=== PATIENT | female | born 1995 | race African-American/Black ===

== ENCOUNTER 2016-11-13 16:35 | Inpatient (IN) | payer OTHER ==
[~2016-11-13] VITALS: Ht 160 cm; Wt 71.3 kg
[~2016-11-13 16:35] MED LIST: ALBUAER19 INH; EPP3/2 INJ; ETON1IMP2 INTRAD; FLUV100T12 PO; HYDR-389 PO; HYDR-5688 PO; LMC/150 PO
[2016-11-13] MEDS ORDERED: AZITTAB PO (17:04)
[2016-11-13] MEDS ORDERED: PRED10TA PO (17:04)
[2016-11-13] MEDS ORDERED: GUAISYP4 PO (17:05)
[2016-11-13 17:21] LABS: HEMATOCRIT 35.8 % (37-47); MEAN CORPUSCULAR HEMOGLOBIN 26.5 pg (25-34); MEAN CORPUSCULAR HGB CONC 34.4 g/dl (32-36); MEAN PLATELET VOLUME 10.3 fL (7.4-10.4); PLATELET COUNT 246 K/uL (130-400); RED BLOOD COUNT 4.65 M/uL (4.2-5.4); WHITE BLOOD COUNT 6.71 K/uL (4.8-10.8)
[2016-11-13 17:34] LABS: BENZODIAZEPINE, URINE NEG (NEG); COCAINE,URINE NEG (NEG); PHENCYCLIDINE, URINE NEG (NEG)
[2016-11-13 17:46] LABS: BUN/CREATININE RATIO 13.4 (10-20); CALCIUM 9.1 mg/dl (8.5-10.1); CREATININE 0.89 mg/dl (0.60-1.20); POTASSIUM 3.6 mmol/L (3.5-5.1)
[2016-11-13 17:48] LABS: ACETAMINOPHEN < 2 ug/ml (10-30)
[2016-11-13 17:56] LABS: THYROID STIMULATING HORMONE 0.813 uIu/ml (0.300-4.500)
[2016-11-13 18:59] VITALS: O2SAT 96
[2016-11-13 19:25] VITALS: BP 120/75; PULSE 80; TEMP 37.1; Ht 160 cm; Wt 71.3 kg
[2016-11-13] MEDS ORDERED: ALBUTEROL HFA 8 GM INHALER INH PRN (19:30)
[2016-11-13] MEDS ORDERED: SODIUM CHLORIDE 0.65% NA SOLN 45 ML (OCEAN) PRN (19:30)
[2016-11-13] MEDS ORDERED: ACETAMINOPHEN 325 MG TAB PO PRN (19:30)
[2016-11-13] MEDS ORDERED: BISMUTH SUBSALICYLATE PER ML OMNICELL CHARGE PO PRN (19:30)
[2016-11-13] MEDS ORDERED: EPINEPHRINE ADULT AUTO-INJECT 0.3 MG SYR IM SCH (19:30)
[2016-11-13] MEDS ORDERED: MAGNESIUM HYDROXIDE SUSP 30 ML UDC PO PRN (19:30)
[2016-11-13] MEDS ORDERED: ALUMINUM/MAGNESIUM SUSP 30 ML UDC PO PRN (19:30)
[2016-11-13] MEDS ORDERED: hydrOXYzine HCL 25 MG TAB PO PRN ×2 (19:30)
[2016-11-13] MEDS ORDERED: NURSING VERBAL MED ORDER ONE ×3 (19:45→21:30)
--- NOTE | 2016-11-13 21:17 | EMERGENCY ROOM VISIT NOTE ---
History Report prepared by Ezra: Elli Alvarez Under the Supervision of: Dr. Ramon Gutierrez M.D. First contact with patient: 16:44 Chief Complaint: MENTAL HEALTH EVALUATION History of Present Illness The patient is a 20 year old female who presents to the Emergency Room with complaints of worsening depression and suicidality. She admits to having a plan of driving in front of traffic in order to hurt herself. She admits she has been experiencing depression for the past 6 months. She states she experienced a concussion several months ago which led to problems at school, and with work. She is currently on antidepressants. She has never been hospitalized for psychiatric reasons. She notes she spoke to a [employer] insurance representative earlier today who recommended inpatient treatment, and she is agreeable to this. The patient is currently being treated for bronchitis and still suffering with a cough and congestion. She has been taking antibiotics, a steroid and cough syrup. She notes otherwise she feels well, but has not had much of an appetite recently. She admits to regular Marijuana use and states the last time she smoke was yesterday. She denies any chance of being . 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 A total of 10 systems reviewed and were otherwise negative. Past Medical & Surgical Medical Problems: (1) Asthma Surgical Problems: (1) History of appendectomy Social History Smoking Status: Never Smoker Alcohol Use: none Drug Use: none Marital Status: single Housing Status: lives with roommate Occupation Status: [employer] student Current/Historical Medications Scheduled Epinephrine (Epipen 2-Edwin), 0.3 MG INJ UD Etonogestrel (Nexplanon), INTRAD [id number] Fluvoxamine Maleate (Luvox), 150 MG PO HS Lamotrigine (Lamictal), 150 MG PO HS Prednisone (Prednisone), 1 TAB PO UD Scheduled PRN Albuterol Inhaler (Ventolin Inhaler), 2 PUFFS INH QID PRN for SOB/Wheezing Guaifenesin/Codeine (Robitussin-Ac Syrup), 5 ML PO Q6H PRN for Cough Miscellaneous Medications Azithromycin (Zithromax Z-Edwin), 1 TAB PO Allergies Coded Allergies: No Known Allergies (Unverified , 11/13/16) Physical Exam Vital Signs Date Time Temp Pulse Resp B/P Pulse Ox O2 Delivery O2 Flow Rate FiO2 11/13/16 16:42 37.0 72 18 133/78 96 Room Air Physical Exam Constitutional: Vital signs reviewed. Eyes: Pupils are equal round reactive to light. Conjunctiva are noninjected. ENT: Pharynx is clear without erythema or exudate. Mucous membranes are moist. Neck supple without meningeal signs. Respiratory: Clear to auscultation bilaterally. Breath sounds are equal bilaterally. Cardiovascular: Regular rate and rhythm. No rubs or gallops. GI: Soft, nondistended and nontender. Bowel sounds are present. Musculoskeletal: No peripheral edema. No lacerations. Integumentary: No cyanosis. Neurological: The patient is awake and alert. No focal deficits. Psychiatric: Depressed affect. Medical Decision & Procedures Laboratory Results 11/13/16 17:09 11/13/16 17:09 Test 11/13/16 16:58 11/13/16 17:09 Urine Test NEG (NEG) Urine Opiates Screen POS (NEG) Urine Methadone, Qualitative NEG (NEG) Urine Barbiturates NEG (NEG) Urine Phencyclidine (PCP) Level NEG (NEG) Ur Amphetamine/Methamphetamine NEG (NEG) MDMA (Ecstasy) Screen NEG (NEG) Urine Benzodiazepines Screen NEG (NEG) Urine Cocaine Metabolite NEG (NEG) Urine Marijuana (THC) POS (NEG) Red Blood Count 4.65 M/uL (4.2-5.4) Mean Corpuscular Volume 77.0 fL (80-100) Mean Corpuscular Hemoglobin 26.5 pg (25-34) Mean Corpuscular Hemoglobin Concent 34.4 g/dl (32-36) RDW Standard Deviation 36.7 fL (36.4-46.3) RDW Coefficient of Variation 13.1 % (11.5-14.5) Mean Platelet Volume 10.3 fL (7.4-10.4) Anion Gap 8.0 mmol/L (3-11) Est Creatinine Clear Calc Drug Dose 95.4 ml/min Estimated GFR () 108.1 Estimated GFR (Non- 93.3 BUN/Creatinine Ratio 13.4 (10-20) Calcium Level 9.1 mg/dl (8.5-10.1) Total Bilirubin 0.5 mg/dl (0.2-1) Direct Bilirubin 0.1 mg/dl (0-0.2) Aspartate Amino Transf (AST/SGOT) 8 U/L (15-37) Alanine Aminotransferase (ALT/SGPT) 17 U/L (12-78) Alkaline Phosphatase 61 U/L (45-117) Total Protein 8.1 gm/dl (6.4-8.2) Albumin 4.2 gm/dl (3.4-5.0) Thyroid Stimulating Hormone (TSH) 0.813 uIu/ml (0.300-4.500) Salicylates Level 3.8 mg/dl (2.8-20) Acetaminophen Level < 2 ug/ml (10-30) Ethyl Alcohol mg/dL < 3.0 mg/dl (0-3) Laboratory results as reviewed by me. ED Course 164: The patient was evaluated in room A6. A complete history and physical exam was performed. 1899: I discussed the patient's case with Leesa from [address] [place] [address]'s Psychiatric Care Floor. The patient will be further evaluated. Medical Decision This is a 20-year-old female presents for mental health evaluation. I did perform a limited focused review of portions of the patient's old chart on the electronic medical record. The patient has had no recent pertinent visits to this hospital. I did evaluate the patient as noted above. The patient is presenting with depression and suicidal ideation. I did order and review the patient's blood work as noted in the electronic medical record. I did medically clear the patient. She was evaluated by mental health. She was accepted to 3 S. inpatient psychiatric unit. Consults Time Called: 1854 Consulting Physician: Leesa [address] [place] [address]'s Psychiatric Care Floor Returned Call: 1899 I discussed the patient's case with Leesa from [address] [place] [address]'s Psychiatric Care Floor. The patient will be further evaluated. Impression Primary Impression: Mood disorder Additional Impression: Suicidal ideation Scribe Attestation The scribe's documentation has been prepared under my direct and personally reviewed by me in its entirety. I confirm that the note above accurately reflects all work, treatment, procedures, and medical decision making performed by me. Departure Information Dispostion Mental Health Acute Care (The patient will be further evaluated by [address] [place] [address] 's Psychiatric Care Floor) Referrals No Doctor, Assigned (PCP) Patient Instructions My [facility] Problem Qualifiers
[2016-11-13] MEDS ORDERED: FLUVOXAMINE MALEATE 50 MG TAB PO SCH (22:00)
[2016-11-13] MEDS ORDERED: PREDNISONE 5 MG PO SCH (23:00)
[2016-11-14] MEDS: GUAIFENESIN/CODEINE 100MG/10MG 5ML UDC PO PRN ×2 (05:12→19:10)
[2016-11-14 07:07] VITALS: BP_SYST 116; BP_SYST 127; BP_DIAS 75; BP_DIAS 81; PULSE 102; PULSE 80; TEMP 36.8
[2016-11-14] MEDS: PREDNISONE 5 MG PO SCH ×2 (08:50→08:51)
[2016-11-14] MEDS ORDERED: PREDNISONE 5 MG PO SCH (09:00)
[2016-11-14] MEDS ORDERED: AZITHROMYCIN 250 MG PO SCH (09:00)
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
[2016-11-14] MEDS: QUETIAPINE FUMARATE 25 MG TAB PO PRN (18:11)
[2016-11-14] MEDS: QUETIAPINE FUMARATE 25 MG TAB PO SCH (21:01)
[2016-11-14] MEDS ORDERED: FLUVOXAMINE MALEATE 50 MG TAB PO SCH (22:00)
[2016-11-15 06:56] VITALS: BP_SYST 119; BP_DIAS 75; BP_DIAS 78; PULSE 62; PULSE 66; TEMP 37
[2016-11-15 07:50] LABS: CHOLESTEROL/HDL RATIO 2.9
[2016-11-15] MEDS ORDERED: PREDNISONE 5 MG PO SCH (09:00)
--- NOTE | 2016-11-15 09:38 | Psychiatric Progress Notes ---
Progress Note Date of Service Nov 15, 2016. Interval History 20 yo female with a history of bipolar depression, admit on 11/13/16 on a 201 commitment. Chief Complaint "I'm feeling calmer but also a bit overmedicated". Subjective Patient was seen & assessed interval progress reviewed with nursing. Family meeting with mother yesterday, related she felt judged. Requesting 1-on-1 today with staff but doesn't specifically note an issue she would like addressed when given opportunity in MD meeting. A bit tired this am. Stated she is undecided about medical withdrawal for the semester and that makes her feel stressed. She's been tearful in pm and poor appetite. Review of Systems Psych: denies symptoms other than stated above Constitutional: denied other than stated above. Cardiovascular: denied GI: denied Neurologic: denied Remainder of 10 body systems also reviewed and denied other than noted above, glad steroid taper is completing also feels made more emotional. Sleep Information Total Hours of Sleep: 7.25 Meal Information Percent of Breakfast Consumed: 50 Percent of Lunch Consumed: 100 Percent of Dinner Consumed: 0 Mental Status Exam During interview pt is: alert and oriented Appearance: appropriately dressed, appropriately groomed Eye contact is: good Motor behavior is: no abnormal motor movements Speech: normal in rate, rhythm & volume Affect: depressed Mood is: depressed Thought process: clear, coherent Thought content: reality based without delusions Suicidal thought are: denied, Plan: denied, Intent: denied Homicidal thoughts are: denied Hallucinations: denies auditory, denies visual Cognition: memory grossly intact, attention grossly intact Intelligence estimated to be: consistent with level of education Insight: limited Judgement: limited Impression Carlos is a 20 yo female with a family history of bipolar disorder who presents with recurrent depression alternating with periods of overcommitment when hypomanic that lead to ongoing anxiety. She has not responded much to 2 SSRI and SNRI and developed SI despite trial of lamictal. Plan (1) Bipolar II disorder with seasonal pattern 11/14/16-- Risks/benefits/alternative treatments were reviewed re: antipsychotics for mood and/or psychosis. Discussion included but was not limited to metabolic side effects, risks of TD and suicidal thoughts. Baseline AIMS=0. Fasting glucose and lipid panel ordered for baseline monitoring. She agreed to a trial of Seroquel which will start 50 mg tonight with additional 12.5 mg daily prn. Case reviewed with Nadine Chan who is supportive of plan as well as Luvox taper. 11/15/16--continue Luvox taper. Tolerating Seroquel so far, consider additional titration. (2) Cannabis use disorder, mild, abuse reviewed impact on treatment of mood disorder in context of self medication and advise abstain, particularly given family history of substance dependence Discharge / Aftercare Planning Psychiatrist: Name: Judit Chan Therapist: Name: Violet Vences Visit Code E&M Code: 33910 Inventory Assets Strengths: resilient, commitment to finishing her degree Needs: balance between work/school/other commitments, improve coping with family and relationship stressors Risk Factors Assessment Mental Health Diagnoses: Yes Substance use disorders: Yes Smoker: No Protective Factors Assessment Employed: Yes Good rapport with provider: Yes Data Vital Signs Last 24 Hrs: Date Time Temp Pulse Resp B/P Pulse Ox O2 Delivery O2 Flow Rate FiO2 11/15/16 06:56 37.0 62 16 119/75 66 119/78 Meds Administered Last 24 Hrs: Meds Administered (Past 24Hrs) Medications (Trade) Dose Ordered Sig/Fay Route Start Time Stop Time Status Last Admin Dose Admin Azithromycin (Zithromax Tab) 250 mg DAILY PO 11/14/16 09:00 11/15/16 08:59 DC 11/14/16 08:49 250 MG Fluvoxamine Maleate (Luvox Tab) 150 mg HS PO 11/13/16 22:00 11/14/16 11:15 DC 11/13/16 21:29 150 MG Codeine Phosphate/ Guaifenesin (Robitussin-AC Sugar Free Syrup) 5 ml Q6H PRN PO 11/13/16 19:30 12/13/16 19:29 11/14/16 19:10 5 ML Lamotrigine (Lamictal Tab) 150 mg HS PO 11/13/16 22:00 12/13/16 21:59 11/14/16 21:00 150 MG Prednisone (PredniSONE TAB) 5 mg TODAY@2300 PO 11/13/16 23:00 11/13/16 23:05 DC 11/13/16 23:11 5 MG Prednisone (PredniSONE TAB) 5 mg BID PO 11/14/16 09:00 11/14/16 22:01 DC 11/14/16 08:50 5 MG Prednisone (PredniSONE TAB) 5 mg TODAY@0900 PO 11/15/16 09:00 11/15/16 09:01 DC 11/15/16 08:48 5 MG Fluvoxamine Maleate (Luvox Tab) 100 mg HS PO 11/14/16 22:00 11/15/16 09:02 DC 11/14/16 21:01 100 MG Quetiapine Fumarate (seroQUEL TAB) 50 mg HS PO 11/14/16 22:00 12/14/16 21:59 11/14/16 21:01 50 MG Quetiapine Fumarate (seroQUEL TAB) 12.5 mg Q6 PRN PO 11/14/16 11:15 12/14/16 11:14 11/14/16 18:11 12.5 MG Lab Results Last 24 Hrs: Last 24 Hours Test 11/15/16 07:24 Random Glucose 94 mg/dl Triglycerides Level 63 mg/dl Cholesterol Level 139 mg/dl HDL Cholesterol 48 mg/dl LDL Cholesterol, Calculated 78 mg/dl VLDL Cholesterol, Calculated 13 mg/dl Cholesterol/HDL Ratio 2.9
[2016-11-15] MEDS: GUAIFENESIN/CODEINE 100MG/10MG 5ML UDC PO PRN (18:34)
[2016-11-15] MEDS: QUETIAPINE FUMARATE 25 MG TAB PO PRN (18:48)
[2016-11-15] MEDS ORDERED: FLUVOXAMINE MALEATE 50 MG TAB PO SCH (22:00)
[2016-11-15] MEDS: QUETIAPINE FUMARATE 25 MG TAB PO SCH (22:48)
[2016-11-16 06:57] VITALS: BP_SYST 112; BP_SYST 113; BP_DIAS 78; BP_DIAS 79; PULSE 67; PULSE 86; TEMP 36.9
[2016-11-16] MEDS: QUETIAPINE FUMARATE 25 MG TAB PO PRN ×2 (08:38→19:02)
--- NOTE | 2016-11-16 14:58 | Psychiatric Progress Notes ---
Progress Note Date of Service Nov 16, 2016. Interval History 20 yo female with a history of bipolar depression, admit on 11/13/16 on a 201 commitment. Chief Complaint concerns about weight gain Subjective Patient was seen & assessed interval progress reviewed with nursing. She apparently found out that her ex-boyfriend knows that she is here and worried that he may show up to visit. Staff reassured that locked unit/secure, visitors are at her discretion but resulted in restless sleep and nonspecific night neff. She remains flat this am and low motivation, doesn't care if lives or dies. Had some fleeting thoughts of thinking of ways to harm self here. Didn't have any plan or intent, continues to safety plan to go to staff. She asked questions about weight concerns longer term with Seroquel based on conversation with mother and is happy to continue it for now as hs dose and prn have been extremely helpful. Review of Systems Psych: denies symptoms other than stated above Constitutional: fatigue Cardiovascular: denied GI: denied Neurologic: denied Remainder of 10 body systems also reviewed and denied other than noted above. Sleep Information Total Hours of Sleep: 6.50 Meal Information Percent of Breakfast Consumed: 50 Percent of Lunch Consumed: 50 Percent of Dinner Consumed: 70 Mental Status Exam During interview pt is: alert and oriented Appearance: appropriately dressed, appropriately groomed Eye contact is: good Motor behavior is: no abnormal motor movements Speech: normal in rate, rhythm & volume Affect: depressed Mood is: depressed Thought process: clear, coherent Thought content: reality based without delusions Suicidal thought are: present, Plan: denied, Intent: denied Homicidal thoughts are: denied Hallucinations: denies auditory, denies visual Cognition: memory grossly intact, attention grossly intact Intelligence estimated to be: consistent with level of education Insight: limited Judgement: limited Impression Carlos is a 20 yo female with a family history of bipolar disorder who presents with recurrent depression alternating with periods of overcommitment when hypomanic that lead to ongoing anxiety. She has not responded much to 2 SSRI and SNRI and developed SI despite trial of lamictal. Continued Inpatient Care Continued inpatient hospitalization is medically necessary for ongoing monitoring and safety. Plan (1) Bipolar II disorder with seasonal pattern 11/14/16-- Risks/benefits/alternative treatments were reviewed re: antipsychotics for mood and/or psychosis. Discussion included but was not limited to metabolic side effects, risks of TD and suicidal thoughts. Baseline AIMS=0. Fasting glucose and lipid panel ordered for baseline monitoring. She agreed to a trial of Seroquel which will start 50 mg tonight with additional 12.5 mg daily prn. Case reviewed with Nadine Chan who is supportive of plan as well as Luvox taper. 11/15/16--continue Luvox taper. Tolerating Seroquel so far, consider additional titration. 11/16/16--d/c Luvox. Patient declines additional Seroquel titration at this time. Consider Wellbutrin trial if no improvement in symptoms tomorrow. (2) Cannabis use disorder, mild, abuse reviewed impact on treatment of mood disorder in context of self medication and advise abstain, particularly given family history of substance dependence Discharge / Aftercare Planning Psychiatrist: Name: Judit Chan Therapist: Name: Violet Vences Visit Code E&M Code: 32630 Inventory Assets Strengths: resilient, commitment to finishing her degree Needs: balance between work/school/other commitments, improve coping with family and relationship stressors Risk Factors Assessment Mental Health Diagnoses: Yes Substance use disorders: Yes Smoker: No Protective Factors Assessment Employed: Yes Good rapport with provider: Yes Data Vital Signs Last 24 Hrs: Date Time Temp Pulse Resp B/P Pulse Ox O2 Delivery O2 Flow Rate FiO2 11/16/16 06:57 36.9 67 16 113/78 86 112/79 Meds Administered Last 24 Hrs: Meds Administered (Past 24Hrs) Medications (Trade) Dose Ordered Sig/Fay Route Start Time Stop Time Status Last Admin Dose Admin Prednisone (PredniSONE TAB) 5 mg TODAY@0900 PO 11/15/16 09:00 11/15/16 09:01 DC 11/15/16 08:48 5 MG Fluvoxamine Maleate (Luvox Tab) 100 mg HS PO 11/14/16 22:00 11/15/16 09:02 DC 11/14/16 21:01 100 MG Quetiapine Fumarate (seroQUEL TAB) 50 mg HS PO 11/14/16 22:00 12/14/16 21:59 11/15/16 22:48 50 MG Fluvoxamine Maleate (Luvox Tab) 50 mg HS PO 11/15/16 22:00 11/16/16 13:09 DC 11/15/16 22:47 50 MG
[2016-11-16] MEDS: QUETIAPINE FUMARATE 25 MG TAB PO SCH (21:58)
[2016-11-17 07:06] VITALS: BP_SYST 107; BP_DIAS 65; BP_DIAS 72; PULSE 71; PULSE 93; TEMP 36.9
[2016-11-17] MEDS ORDERED: BuPROPion SR 100 MG TABCR PO ONE (11:21)
--- NOTE | 2016-11-17 11:21 | Psychiatric Progress Notes ---
Progress Note Date of Service Nov 17, 2016. Interval History 20 yo female with a history of bipolar depression, admit on 11/13/16 on a 201 commitment. Chief Complaint "My mood's still not stable at all". Subjective Patient was seen & assessed interval progress reviewed with Treatment Team. Staff report she has been tearful and upset, is going to groups, and has had med changes. She has been tapered off Luvox and started quetiapine, while continuing home dose Lamictal. She states her mood is slightly improved from admission, but still feels depressed, with frequent mood swings throughout the day. She denies triggers, and states the mood swings are unpredictable. She endorses ongoing suicidal thoughts, stating "I'd rather not be here with the way I feel." She has thoughts of driving her car into something. She is unable to contract for safety outside the hospital, but feels safe here. She states that her sleep is "awful, tossing and turning, sweating, had a nightmare. " She is trying to force herself to participate in treatment but says she "hates group, doesn't help, just annoys me, a lot of patients here who don't take their mental illness seriously." She does feel one-on-one sessions with staff has been helpful. She would like to start Wellbutrin as previously discussed with Dr. Horan over the weekend. Sleep Information Total Hours of Sleep: 6.50 Meal Information Percent of Breakfast Consumed: 90 Percent of Lunch Consumed: 50 Percent of Dinner Consumed: 50 Mental Status Exam During interview pt is: alert and oriented Appearance: appropriately dressed (wearing orange sweat pants and an orange sweatshirt that says "loza"), appropriately groomed (wearing makeup) Eye contact is: good Motor behavior is: steady gait & station, no abnormal motor movements Speech: normal in rate, rhythm & volume Affect: depressed, tearful, constricted Mood is: depressed Thought process: goal directed, clear, coherent Thought content: reality based without delusions Suicidal thought are: present, Plan: present (crashing her car into something) , Intent: denied Homicidal thoughts are: denied Hallucinations: denies auditory, denies visual Cognition: memory grossly intact, attention grossly intact Intelligence estimated to be: consistent with level of education Insight: limited Judgement: limited Impression Carlos is a 20 yo female with a family history of bipolar disorder who presents with recurrent depression alternating with periods of overcommitment when hypomanic that lead to ongoing anxiety. She has not responded much to 2 SSRI and SNRI and developed SI despite trial of Lamictal. On admission, she was placed on a Luvox taper, and was started on quetiapine. 11/17/2016 she is being started on Wellbutrin. Continued Inpatient Care Continued inpatient hospitalization is medically necessary for ongoing monitoring and safety due to severe depression and ongoing suicidality. Plan (1) Bipolar II disorder with seasonal pattern 11/14/16-- Risks/benefits/alternative treatments were reviewed re: antipsychotics for mood and/or psychosis. Discussion included but was not limited to metabolic side effects, risks of TD and suicidal thoughts. Baseline AIMS=0. Fasting glucose and lipid panel ordered for baseline monitoring. She agreed to a trial of Seroquel which will start 50 mg tonight with additional 12.5 mg daily prn. Case reviewed with Nadine Chan who is supportive of plan as well as Luvox taper. Continue home dose of lamotrigine 150 mg daily. Family meeting held with parents. 11/15/16--continue Luvox taper. Tolerating Seroquel so far, consider additional titration. Fasting labs were within normal limits. 11/16/16--d/c Luvox. Patient declines additional Seroquel titration at this time. Consider Wellbutrin trial if no improvement in symptoms tomorrow. 11/17/16 --Increase quetiapine to 100mg qhs to target depression, mood lability, and sleep. Start bupropion SR 100mg bid. Monitor for mood instability. --Encouraged to attend groups, work on healthy coping skills, and discharge safety plan. (2) Cannabis use disorder, mild, abuse reviewed impact on treatment of mood disorder in context of self medication and advise abstain, particularly given family history of substance dependence Discharge / Aftercare Planning Psychiatrist: Name: Judit Cahn Therapist: Name: Violet Vences Visit Code E&M Code: 05402 Inventory Assets Strengths: resilient, commitment to finishing her degree Needs: balance between work/school/other commitments, improve coping with family and relationship stressors Risk Factors Assessment Mental Health Diagnoses: Yes Substance use disorders: Yes Smoker: No Protective Factors Assessment Employed: Yes Good rapport with provider: Yes Data Vital Signs Last 24 Hrs: Date Time Temp Pulse Resp B/P Pulse Ox O2 Delivery O2 Flow Rate FiO2 11/17/16 07:06 36.9 71 16 107/65 93 107/72 Meds Administered Last 24 Hrs: Meds Administered (Past 24Hrs) Medications (Trade) Dose Ordered Sig/Fay Route Start Time Stop Time Status Last Admin Dose Admin Fluvoxamine Maleate (Luvox Tab) 50 mg HS PO 11/15/16 22:00 11/16/16 13:09 DC 11/15/16 22:47 50 MG
[2016-11-17] MEDS: QUETIAPINE FUMARATE 25 MG TAB PO PRN (13:23)
[2016-11-17 16:32] LABS: COD UR 2880 NG/ML (CUTOFF=50); HYDROCOD UR 68 NG/ML (CUTOFF=50); HYDROMOR UR NEGATIVE NG/ML (CUTOFF=50); MORPHINE UR 201 NG/ML (CUTOFF=50); NORHYDROCODONE CONF UR 64 NG/ML (CUTOFF=50); OXYMORPH UR NEGATIVE NG/ML (CUTOFF=50)
[2016-11-17] MEDS: BuPROPion SR 100 MG TABCR PO SCH (17:22)
[2016-11-17] MEDS: QUETIAPINE FUMARATE 100 MG TAB PO SCH (22:06)
[2016-11-18 07:10] VITALS: BP_SYST 105; BP_SYST 111; BP_DIAS 67; BP_DIAS 70; PULSE 101; PULSE 80; TEMP 37
[2016-11-18] MEDS: BuPROPion SR 100 MG TABCR PO SCH ×2 (08:55→17:20)
--- NOTE | 2016-11-18 12:20 | Psychiatric Progress Notes ---
Progress Note Date of Service Nov 18, 2016. Interval History 20 yo female with a history of bipolar depression, admit on 11/13/16 on a 201 commitment. Chief Complaint "A complete 180 from yesterday". Subjective Patient was seen & assessed interval progress reviewed with nursing. Staff report she refused groups yesterday, but talked with staff one on one. Today she says her mood is "much better," while crying. She says she thinks she "just got sick of being depressed, had a visit from a friend, now I want to take on the world." She says she is "just really happy to feel better, because I was really hopeless yesterday." She denies SI, and feels safe here. She has not started working on her safety plan, but has thought about ways to prevent worsening depression. She continues to report high anxiety, "haven't really gotten a hold on it yet, just takes over." Exacerbated by "thinking about things way too far down the line to be worried about." She is going to groups today, and thought it was helpful to learn about the errors in thinking that lead to her anxiety. She reports intense, vivid dreams, which is new. Sleep Information Total Hours of Sleep: 7.00 Meal Information Percent of Breakfast Consumed: 100 Percent of Lunch Consumed: 100 Percent of Dinner Consumed: 100 Mental Status Exam During interview pt is: alert and oriented Appearance: appropriately dressed, appropriately groomed Eye contact is: good Motor behavior is: steady gait & station, no abnormal motor movements Speech: normal in rate, rhythm & volume Affect: depressed, tearful (briefly), other (more reactive) Mood is: depressed Thought process: goal directed, clear, coherent Thought content: reality based without delusions Suicidal thought are: denied Homicidal thoughts are: denied Hallucinations: denies auditory, denies visual Cognition: memory grossly intact, attention grossly intact Intelligence estimated to be: consistent with level of education Insight: limited Judgement: limited Impression Carlos is a 20 yo female with a family history of bipolar disorder who presents with recurrent depression alternating with periods of overcommitment when hypomanic that lead to ongoing anxiety. She has not responded much to 2 SSRI and SNRI and developed SI despite trial of Lamictal. On admission, she was placed on a Luvox taper, and was started on quetiapine. 11/17/2016 she is being started on Wellbutrin. Continued Inpatient Care Continued inpatient hospitalization is medically necessary for ongoing monitoring and safety due to severe depression and ongoing suicidality. Plan (1) Bipolar II disorder with seasonal pattern 11/14/16-- Risks/benefits/alternative treatments were reviewed re: antipsychotics for mood and/or psychosis. Discussion included but was not limited to metabolic side effects, risks of TD and suicidal thoughts. Baseline AIMS=0. Fasting glucose and lipid panel ordered for baseline monitoring. She agreed to a trial of Seroquel which will start 50 mg tonight with additional 12.5 mg daily prn. Case reviewed with Nadine Chan who is supportive of plan as well as Luvox taper. Continue home dose of lamotrigine 150 mg daily. Family meeting held with parents. 11/15/16--continue Luvox taper. Tolerating Seroquel so far, consider additional titration. Fasting labs were within normal limits. 11/16/16--d/c Luvox. Patient declines additional Seroquel titration at this time. Consider Wellbutrin trial if no improvement in symptoms tomorrow. 11/17/16 --Increase quetiapine to 100mg qhs to target depression, mood lability, and sleep. Start bupropion SR 100mg bid. Monitor for mood instability. --Encouraged to attend groups, work on healthy coping skills, and discharge safety plan. 11/18/16 - continue current meds. - Provide CBT worksheets (2) Cannabis use disorder, mild, abuse reviewed impact on treatment of mood disorder in context of self medication and advise abstain, particularly given family history of substance dependence Discharge / Aftercare Planning Psychiatrist: Name: Judit Chan Therapist: Name: Violet Vences Visit Code E&M Code: 06833 Inventory Assets Strengths: resilient, commitment to finishing her degree Needs: balance between work/school/other commitments, improve coping with family and relationship stressors Risk Factors Assessment Mental Health Diagnoses: Yes Substance use disorders: Yes Smoker: No Protective Factors Assessment Employed: Yes Good rapport with provider: Yes Data Vital Signs Last 24 Hrs: Date Time Temp Pulse Resp B/P Pulse Ox O2 Delivery O2 Flow Rate FiO2 11/18/16 07:10 37.0 80 16 105/70 101 111/67 Meds Administered Last 24 Hrs: Meds Administered (Past 24Hrs) Medications (Trade) Dose Ordered Sig/Fay Route Start Time Stop Time Status Last Admin Dose Admin Quetiapine Fumarate (seroQUEL TAB) 100 mg HS PO 11/17/16 22:00 12/17/16 21:59 11/17/16 22:06 100 MG Bupropion HCl (Wellbutrin-Sr Tab) 100 mg BID17 PO 11/17/16 17:00 12/17/16 16:59 11/18/16 08:55 100 MG Bupropion HCl (Wellbutrin-Sr Tab) 100 mg 1121 ONCE PO 11/17/16 11:21 11/17/16 11:32 DC 11/17/16 11:47 100 MG
[2016-11-18] MEDS: QUETIAPINE FUMARATE 100 MG TAB PO SCH (22:11)
[2016-11-19 07:03] VITALS: BP_SYST 101; BP_SYST 107; BP_DIAS 66; BP_DIAS 69; PULSE 82; PULSE 96; TEMP 36.8
[2016-11-19] MEDS: BuPROPion SR 100 MG TABCR PO SCH (09:10)
[2016-11-19] MEDS ORDERED: SRQ100 PO (10:28)
[2016-11-19] MEDS ORDERED: SRQ25 PO (10:28)
[2016-11-19] MEDS ORDERED: WLLSR100 PO (10:28)
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
[2016-11-19] MEDS ORDERED: DESTROY THIS MEDICATION ONE (12:00)
== END 2016-11-19 12:45 | disposition home or self-care (01) | DRG 885 ==
LOC: C.EDB 16:37 → C.MHU 18:43
PROVIDERS: ADMIT Psychiatry & Neurology Child & Adolescent Psychiatry; ATTEND Psychiatry & Neurology Child & Adolescent Psychiatry
DX: F31.81 Bipolar II disorder (principal); R45.851 Suicidal ideations; F12.10 Cannabis abuse, uncomplicated; Z65.3 Problems related to other legal circumstances; Z91.411 Personal history of adult psychological abuse; Z79.52 Long term (current) use of systemic steroids; Z79.899 Other long term (current) drug therapy; Z81.8 Family history of other mental and behavioral disorders; Z81.1 Family history of alcohol abuse and dependence; Z82.49 Family history of ischemic heart disease and other diseases of the circulatory system

== ENCOUNTER 2017-10-27 16:48 | Emergency (ER) | payer OTHER ==
[~2017-10-27] VITALS: Ht 160 cm; Wt 62.8 kg
[~2017-10-27 16:48] MED LIST changes: -FLUV100T12 PO; +GUAISYP4 PO; -HYDR-389 PO; -HYDR-5688 PO; +QUET-115 PO; +SRQ25 PO; +WLLSR100 PO
[2017-10-27 16:52] VITALS: TEMP 36.9; Ht 160 cm; Wt 62.8 kg
[2017-10-27] MEDS ORDERED: ALBUT/IPRATROP 3MG/0.5MG NEB 3 ML VIAL INH STA (17:36)
--- NOTE | 2017-10-27 17:40 | EMERGENCY ROOM VISIT NOTE ---
History Report prepared by Ezra: Jermain Chi Under the Supervision of: Dr. Gavino Ramirez M.D. First contact with patient: 17:28 Chief Complaint: SHORTNESS OF BREATH Stated Complaint: SOB- [facility] REFERRED Nursing Triage Summary: Patient ambulatory to triage with a steady and upright gait, states "I just left [facility]. I went for shortness of breath that came on suddenly around noon today. I have a history asthma. I was sent here for evaluation for a PE. I have shortness of breath, a cough, heart palpitations, and dizziness." Patient flew to and from [place] at the beginning of October. History of Present Illness The patient is a 21 year old female who presents to the Emergency Room with complaints of constant shortness of breath starting around 1200 today. The patient state that she thought she was having an asthma exacerbation went to urgent care and they told her to come to the ED for evaluation for a PE. The patient additionally states that her heart has been beating very fast, and she is having some chest tightness. She denies any vaginal bleeding, rectal bleeding , coughing up blood, and chance of . The patient states that she went to [place] from the -, and she states that she is currently on control. She notes that she has never been admitted for her asthma in the past, and she has not been using her inhaler recently. Source of History: patient Onset: 1200 today Position: other (global) Quality: other (shortness of breath) Timing: constant Associated Symptoms: + chest pain (tightness) Note: Associated symptoms: Heart beating fast. Review of Systems See HPI for pertinent positives and negatives. A total of ten systems were reviewed and were otherwise negative. Past Medical & Surgical Medical Problems: (1) Asthma (2) Bipolar II disorder with seasonal pattern (3) Cannabis use disorder, mild, abuse Surgical Problems: (1) History of appendectomy Social History Smoking Status: Never Smoker Alcohol Use: none Drug Use: none Marital Status: single Housing Status: lives with roommate Occupation Status: [employer] student Current/Historical Medications Scheduled Bupropion HCl (Bupropion HCl Sr), 100 MG PO BID17 Etonogestrel (Nexplanon), INTRAD [id number] Lamotrigine (Lamictal), 150 MG PO HS Prednisone (Prednisone), 50 MG PO DAILY Scheduled PRN Albuterol (Ventolin Hfa), 2 PUFFS INH QID PRN for Shortness of Breath Quetiapine Fumarate (Quetiapine Fumarate), 12.5 MG PO BID PRN for Anxiety Quetiapine Fumarate (Seroquel), 100 MG PO HS PRN for Anxiety Allergies Coded Allergies: No Known Allergies (Unverified , 10/27/17) Physical Exam Vital Signs Date Time Temp Pulse Resp B/P (MAP) Pulse Ox O2 Delivery O2 Flow Rate FiO2 10/27/17 19:19 77 18 132/77 98 10/27/17 18:04 73 14 124/75 100 Room Air 10/27/17 16:56 98 Room Air 10/27/17 16:52 36.9 75 20 128/88 98 Room Air Physical Exam Physical Exam GENERAL: She is oriented to person, place, and time. She appears well- developed and well-nourished. She does not appear distressed. ____ HENT: Exam performed. Head: Normocephalic and atraumatic. Right Ear: External ear normal. No mastoid tenderness. Left Ear: External ear normal. No mastoid tenderness. Mouth/Throat: The oropharynx is clear and moist. No trismus in the jaw. No dental abscesses or uvula swelling. No oropharyngeal exudate or tonsillar abscesses. ____ EYES: Conjunctivae and EOM are normal. Pupils are equal, round, and reactive to light. Right eye exhibits no discharge. Left eye exhibits no discharge. No scleral icterus. ____ NECK: Normal range of motion. Neck supple. No JVD present. No spinous process tenderness present. No carotid bruit present. No rigidity. No tracheal deviation and normal range of motion present. No Brudzinski's sign and no Kernig 's sign noted. ____ CV: Normal rate, regular rhythm, normal heart sounds and intact distal pulses. There is no peripheral edema. Palpable radial pulses bue. ____ PULM/CHEST: Effort normal and breath sounds normal. No respiratory distress. No stridor. She has no wheezes. She has no rales. Chest Wall: She exhibits no tenderness. ____ ABD: The abdomen is soft. Bowel sounds are normal. She has no distension. No mass is present. There is no tenderness. There is no rebound, no guarding, no Keating's sign and no tenderness at McBurney's point. Rovsig negative MUSC/SKEL: Normal range of motion. There is no peripheral edema, tenderness or deformity. LYMPH: No cervical adenopathy. ____ NEURO: She is alert and oriented to person, place, and time. She has normal strength. No cranial nerve deficit or sensory deficit. Coordination and gait normal. GCS eye subscore is 4. GCS verbal subscore is 5. GCS motor subscore is 6. cerbellar tests wnl. ____ SKIN: Skin is warm and dry. She is not diaphoretic. ____ PSYCH: She has a normal mood and affect. Her behavior is normal. Judgment and thought content normal. ____ Medical Decision & Procedures ER Provider Diagnostic Interpretation: Radiology results as stated below per my review and radiologist interpretation: CHEST 2 VIEWS ROUTINE CLINICAL HISTORY: sob dyspnea COMPARISON STUDY: 08/24/2014 FINDINGS: The bones soft tissues and hemidiaphragms are normal. The cardiomediastinal silhouette is normal. The lungs are clear. The pulmonary vasculature is normal. IMPRESSION: Negative chest. The above report was generated using voice recognition software. It may contain grammatical, syntax or spelling errors. Electronically signed by: Jose Bass M.D. 10/27/2017 6:40 PM Dictated Date/Time: 10/27/2017 6:39 PM Laboratory Results Test 10/27/17 17:55 10/27/17 18:25 D-Dimer < 190 ug/L FEU (0-500) Urine Color YELLOW Urine Appearance CLEAR (CLEAR) Urine pH 8.5 (4.5-7.5) Urine Specific [place] 1.010 (1.000-1.030) Urine Protein NEG (NEG) Urine Glucose (UA) NEG (NEG) Urine Ketones NEG (NEG) Urine Occult Blood TRACE (NEG) Urine Nitrite NEG (NEG) Urine Bilirubin NEG (NEG) Urine Urobilinogen NEG (NEG) Urine Leukocyte Esterase NEG (NEG) Urine WBC (Auto) 1-5 /hpf (0-5) Urine RBC (Auto) 5-10 /hpf (0-4) Urine Hyaline Casts (Auto) 1-5 /lpf (0-5) Urine Epithelial Cells (Auto) 10-20 /lpf (0-5) Urine Bacteria (Auto) NEG (NEG) Urine Test NEG (NEG) Laboratory results reviewed by me Medications Administered Medications (Trade) Dose Ordered Sig/Fay Route Start Time Stop Time Status Last Admin Dose Admin Albuterol/ Ipratropium (Duoneb) 3 ml NOW STAT INH 10/27/17 17:36 10/27/17 17:38 DC 10/27/17 18:13 3 ML Prednisone (PredniSONE TAB) 60 mg NOW STAT PO 10/27/17 17:36 10/27/17 17:38 DC 10/27/17 18:14 60 MG ECG Indication: SOB/dyspnea Rate (beats per minute): 61 Rhythm: other (Sinus arrhythmia) Findings: no acute ischemic change, no ectopy, other (MD, QRS, and QTc are within normal limits. No ST depressions or elevations. Mild T wave flattening/ inversion in lead 3) Change: EKG has been interpreted by me. ED Course 1728: The patient was evaluated in room B3. A complete history and physical exam was performed. 1736: Prednisone 60mg PO, DuoNeb 3ml INH 1853: VSS. EKG, labs, and chest x-ray are within normal limits. On repeat exam, the lungs are clear to auscultation bilaterally. She will be discharged with a prescription for prednisone and albuterol, and she will follow up with her PCP. DISCHARGE - Plan of care discussed with patient and questions answered. The patient was given both verbal and printed discharge instructions. The patient verbalized understanding and ability to comply. The patient is to seek outpatient follow up as noted in the discharge instructions. The patient verbalized understanding and ability to comply. The patient is discharged in stable condition. The patient was instructed to return for worsening symptoms. Medical Decision VSS. EKG, labs, and chest x-ray are within normal limits. On repeat exam, the lungs are clear to auscultation bilaterally. She will be discharged with a prescription for prednisone and albuterol, and she will follow up with her PCP. DISCHARGE - Plan of care discussed with patient and questions answered. The patient was given both verbal and printed discharge instructions. The patient verbalized understanding and ability to comply. The patient is to seek outpatient follow up as noted in the discharge instructions. The patient verbalized understanding and ability to comply. The patient is discharged in stable condition. The patient was instructed to return for worsening symptoms. Medication Reconcilliation Current Medication List: was personally reviewed by me Blood Pressure Screening Patient's blood pressure: Normal blood pressure Impression Primary Impression: Asthma attack Additional Impression: Costochondritis Scribe Attestation The scribe's documentation has been prepared under my direction and personally reviewed by me in its entirety. I confirm that the note above accurately reflects all work, treatment, procedures, and medical decision making performed by me. The chart was completed utilizing [employer] Speech voice recognition software. Grammatical errors, random word insertions, pronoun errors, and incomplete sentences are an occasional consequence of this system due to software limitations, ambient noise, and hardware issues. Any formal questions or concerns about the content, text, or information contained within the body of this dictation should be directly addressed to the physician for clarification. Departure Information Dispostion Home / Self-Care Prescriptions Prednisone (Prednisone) 50 Mg Tab 50 MG PO DAILY for 4 Days, #4 TAB Prov: Gavino Ramirez M.D. 10/27/17 Albuterol (Ventolin Hfa) 60 Puffs/5400 Mcg Aers 2 PUFFS INH QID Y for Shortness of Breath for 5 Days, #1 INHALER Prov: Gavino Ramirez M.D. 10/27/17 Referrals No Doctor, Assigned (PCP) Forms HOME CARE DOCUMENTATION FORM, IMPORTANT VISIT INFORMATION, School Instructions, Work Instructions Patient Instructions Asthma - [facility], ED Chest Pain Costochondritis, My [facility] Health Problem Qualifiers Primary Impression: Asthma attack Asthma severity: mild Asthma persistence: intermittent Qualified Codes: J45.21 - Mild intermittent asthma with (acute) exacerbation
[2017-10-27] MEDS ORDERED: SRQ/100 PO (18:07)
--- NOTE | 2017-10-27 18:41 | DIAGNOSTIC IMAGING REPORT ---
CHEST 2 VIEWS ROUTINE CLINICAL HISTORY: sob dyspnea COMPARISON STUDY: 08/24/2014 FINDINGS: The bones soft tissues and hemidiaphragms are normal. The cardiomediastinal silhouette is normal. The lungs are clear. The pulmonary vasculature is normal. IMPRESSION: Negative chest. The above report was generated using voice recognition software. It may contain grammatical, syntax or spelling errors. Electronically signed by: Jose Bass M.D. 10/27/2017 6:40 PM Dictated Date/Time: 10/27/2017 6:39 PM
[2017-10-27] MEDS ORDERED: PRVHFAIN INH (18:55)
[2017-10-27] MEDS ORDERED: PRED50TA PO (18:55)
[2017-10-27 19:19] VITALS: BP 132/77; PULSE 77; O2SAT 98
== END 2017-10-27 19:08 | disposition home or self-care (01) ==
LOC: C.EDB 16:49
DX: J45.21 Mild intermittent asthma with (acute) exacerbation (principal); R06.02 Shortness of breath; M94.0 Chondrocostal junction syndrome [Tietze]; F31.9 Bipolar disorder, unspecified; Z79.899 Other long term (current) drug therapy

== ENCOUNTER 2017-10-29 22:52 | Emergency (ER) | payer OTHER ==
[~2017-10-29] VITALS: Ht 160 cm; Wt 61.6 kg
[~2017-10-29 22:52] MED LIST changes: -ALBUAER19 INH; -EPP3/2 INJ; -GUAISYP4 PO; +PRED50TA PO; +PRVHFAIN INH; -QUET-115 PO; +SRQ/100 PO
[2017-10-29 22:57] VITALS: TEMP 36.7; Ht 160 cm; Wt 61.6 kg
--- NOTE | 2017-10-29 23:47 | EMERGENCY ROOM VISIT NOTE ---
History Report prepared by Ezra: Melvin Sanon Under the Supervision of: Dr. Uri Delgado M.D. First contact with patient: 23:38 Chief Complaint: CARDIAC ASSESSMENT Stated Complaint: SOB, CHEST PAIN History of Present Illness The patient is a 21 year old female who presents to the Emergency Room with complaints of worsening chest pain beginning a few days ago. The patient states that she went to [facility] a few days ago, because she thought she was having an asthma attack. She notes that she was instead sent to the emergency room because they did not think so. She reports that her symptoms have not improved since she was discharged, prompting her return visit [facility]. She also complains of lingering cold symptoms and a cough, but denies any diarrhea, urinary symptoms, blood clots, leg swelling, and wheezing. She also states that it feels like her heart is racing. She notes that she is currently on control, and has recently traveled to [place]. She reports that she has a history of asthma for which she typically wheezes when she has flare ups. The patient states that her symptoms do not feel like her usual asthma symptoms. Source of History: patient Onset: a few days ago Position: chest Timing: worsening Associated Symptoms: + cough, No diarrhea, No urinary symptoms Note: She complains of lingering cold symptoms. She denies any blood clots, leg swelling, and wheezing. Review of Systems See HPI for pertinent positives & negatives. A total of 10 systems reviewed and were otherwise negative. Past Medical & Surgical Medical Problems: (1) Asthma (2) Bipolar II disorder with seasonal pattern (3) Cannabis use disorder, mild, abuse Surgical Problems: (1) History of appendectomy (2) Hx of tonsillectomy Family History No pertinent family history stated. Social History Smoking Status: Never Smoker Alcohol Use: none Drug Use: none Marital Status: single Housing Status: lives with roommate Occupation Status: [employer] student Current/Historical Medications Scheduled Bupropion HCl (Bupropion HCl Sr), 100 MG PO BID17 Etonogestrel (Nexplanon), INTRAD [id number] Lamotrigine (Lamictal), 150 MG PO HS Prednisone (Prednisone), 50 MG PO DAILY Scheduled PRN Albuterol (Ventolin Hfa), 2 PUFFS INH QID PRN for Shortness of Breath Quetiapine Fumarate (Seroquel), 100 MG PO HS PRN for Anxiety Allergies Coded Allergies: No Known Allergies (Unverified , 10/30/17) Physical Exam Vital Signs Date Time Temp Pulse Resp B/P (MAP) Pulse Ox O2 Delivery O2 Flow Rate FiO2 10/30/17 01:20 66 16 112/77 100 10/30/17 00:51 66 16 112/77 100 Room Air 10/29/17 22:57 36.7 85 20 126/77 100 Room Air Physical Exam GENERAL: Patient is anxious appearing and in mild distress. HEENT: No acute trauma, normocephalic atraumatic, mucous membranes moist, no nasal congestion, no scleral icterus. NECK: No stridor, no adenopathy, no meningismus, trachea is midline. LUNGS: No dyspnea. Clear to auscultation and equal bilaterally. No wheeze, no rhonchi. HEART: Regular rate and rhythm. No murmurs, rubs, gallops appreciated. ABDOMEN: Soft, nontender, bowel sounds positive, no masses appreciated, no peritonitis. BACK: No midline tenderness, no CVA tenderness EXTREMITIES: Normal motion all extremities, no cyanosis, no edema. NEUROLOGIC: Alert and oriented, no acute motor or sensory deficits, no focal weakness, cranial nerves grossly intact. SKIN: No rash, no jaundice, no diaphoresis. Medical Decision & Procedures ER Provider Diagnostic Interpretation: Radiology results and stated below per my review and radiologist interpretation: CTA CHEST: No occlusive pulmonary embolus or thoracic aortic aneurysm. Small residual anterior thymic tissue versus thymic hyperplasia suggested. No pericardial effusion. Lungs are clear. Mild scoliotic curvature of spine noted. Radiologist: Christoph Florian M.D. Laboratory Results 10/29/17 23:58 Red Blood Count 4.75, Mean Corpuscular Volume 80.6, Mean Corpuscular Hemoglobin 27.2, Mean Corpuscular Hemoglobin Concent 33.7, Mean Platelet Volume 10.4, Neutrophils (%) (Auto) 59.9, Lymphocytes (%) (Auto) 30.1, Monocytes (%) (Auto) 9.6, Eosinophils (%) (Auto) 0.1, Basophils (%) (Auto) 0.1, Neutrophils # (Auto) 5.58, Lymphocytes # (Auto) 2.80, Monocytes # (Auto) 0.89, Eosinophils # (Auto) 0.01, Basophils # (Auto) 0.01 10/29/17 23:58 Test 10/29/17 23:58 10/30/17 00:05 White Blood Count 9.31 K/uL (4.8-10.8) Red Blood Count 4.75 M/uL (4.2-5.4) Hemoglobin 12.9 g/dL (12.0-16.0) Hematocrit 38.3 % (37-47) Mean Corpuscular Volume 80.6 fL (80-100) Mean Corpuscular Hemoglobin 27.2 pg (25-34) Mean Corpuscular Hemoglobin Concent 33.7 g/dl (32-36) Platelet Count 272 K/uL (130-400) Mean Platelet Volume 10.4 fL (7.4-10.4) Neutrophils (%) (Auto) 59.9 % Lymphocytes (%) (Auto) 30.1 % Monocytes (%) (Auto) 9.6 % Eosinophils (%) (Auto) 0.1 % Basophils (%) (Auto) 0.1 % Neutrophils # (Auto) 5.58 K/uL (1.4-6.5) Lymphocytes # (Auto) 2.80 K/uL (1.2-3.4) Monocytes # (Auto) 0.89 K/uL (0.11-0.59) Eosinophils # (Auto) 0.01 K/uL (0-0.5) Basophils # (Auto) 0.01 K/uL (0-0.2) RDW Standard Deviation 37.9 fL (36.4-46.3) RDW Coefficient of Variation 12.9 % (11.5-14.5) Immature Granulocyte % (Auto) 0.2 % Immature Granulocyte # (Auto) 0.02 K/uL (0.00-0.02) Est Creatinine Clear Calc Drug Dose 75.9 ml/min Estimated GFR () 96.8 Estimated GFR (Non- 83.5 BUN/Creatinine Ratio 6.5 (10-20) Calcium Level 9.6 mg/dl (8.5-10.1) Troponin I < 0.015 ng/ml (0-0.045) Bedside Hemoglobin 13.6 g/dl (12.0-16.0) Bedside Hematocrit 40 % (37-47) Bedside Sodium 140 mEq/L (135-144) Bedside Potassium 3.6 mEq/L (3.3-5.0) Bedside Chloride 102 mEq/L (101-112) Bedside Total CO2 26 mEq/l (24-31) Anion Gap 18.0 mmol/L (16-25) Bedside Blood Urea Nitrogen 5 mg/dl (7-18) Bedside Creatinine 0.8 mg/dl (0.6-1.3) Bedside Glucose (other) 97 mg/dl (70-99) Bedside Ionized Calcium (Mariam) 1.20 mmol/l (1.12-1.32) Laboratory results as reviewed by me. Medications Administered Medications (Trade) Dose Ordered Sig/Fay Route Start Time Stop Time Status Last Admin Dose Admin Ketorolac Tromethamine (Toradol Inj) 30 mg NOW STAT IV 10/30/17 00:26 10/30/17 00:27 DC 10/30/17 00:33 30 MG Diphenhydramine HCl (Benadryl Inj) 25 mg NOW STAT IV 10/30/17 00:26 10/30/17 00:27 DC 10/30/17 00:32 25 MG ECG Indication: chest pain Rate (beats per minute): 78 Rhythm: sinus with SA Findings: no acute ischemic change, no ectopy Change: Patient's electrocardiogram interpreted by me. ED Course 2339: The patient was evaluated in room A3. A complete history and physical exam was performed. 0111: I reevaluated and updated the patient. She is feeling better but is tired. I discussed her results, and she is comfortable going home. She will follow up with either her PCP or with S. 0126: Reevaluated the patient. Discussed results and discharge instructions: she verbalized understanding and agreement. The patient is ready for discharge. Medical Decision Differential: Infectious, Reactive Airway Disease, Pneumonia, Pneumothorax, Pericarditis, Pulmonary Embolism, MSK, GI, amongst other etiologies entertained. 21 yr old female with history asthma who had 1-2 weeks ago URI and then 2 days ago presented with shob/chest discomfort. Treated at asthma flare though no improvement as of yet. She has normal dimer at that time, but given persistent symptoms, clear lungs currently, recent travel to [place], and her BC use, felt that she will need CT PE study which was fortunately unremarkable. EKG, Labs, and vitals normal. Feeling better after Toradol/Benadryl. She is stable, breathing comfortably and in no distress. Advised finishing Prednisone, continued Inhaler PRN and discussed symptoms requiring RTED. Advised follow up with S/PCP Medication Reconcilliation Current Medication List: was personally reviewed by me Blood Pressure Screening Patient's blood pressure: Normal blood pressure Blood pressure disposition: Did not require urgent referral Impression Primary Impression: Shortness of breath Additional Impression: Chest tightness Scribe Attestation The scribe's documentation has been prepared under my direction and personally reviewed by me in its entirety. I confirm that the note above accurately reflects all work, treatment, procedures, and medical decision making performed by me. Departure Information Dispostion Home / Self-Care Referrals [facility] Forms IMPORTANT VISIT INFORMATION Patient Instructions My [facility] Additional Instructions Keep well hydrated and rest over next few days. Avoid exertion as well as any lung irritants (smoke, dust, etc). Return if worsening symptoms, fevers, vomiting, passing out or other concerns. Problem Qualifiers
[2017-10-30] MEDS ORDERED: OPTIRAY 320 IV PRN
[2017-10-30 00:11] LABS: BASO % 0.1 %; BASO ABS # 0.01 K/uL (0-0.2); EOS % 0.1 %; EOS ABS # 0.01 K/uL (0-0.5); HEMATOCRIT 38.3 % (37-47); HEMOGLOBIN 12.9 g/dL (12.0-16.0); IG# 0.02 K/uL (0.00-0.02); LYMPH % 30.1 %; MEAN CELL VOLUME 80.6 fL (80-100); MEAN CORPUSCULAR HEMOGLOBIN 27.2 pg (25-34); MEAN CORPUSCULAR HGB CONC 33.7 g/dl (32-36); MEAN PLATELET VOLUME 10.4 fL (7.4-10.4); MONO % 9.6 %; MONO ABS # 0.89 K/uL (0.11-0.59); NEUT % 59.9 %; NEUT ABS # 5.58 K/uL (1.4-6.5); PLATELET COUNT 272 K/uL (130-400); RED CELL DISTRIBUTION WIDTH CV 12.9 % (11.5-14.5); RED CELL DISTRIBUTION WIDTH SD 37.9 fL (36.4-46.3); WHITE BLOOD COUNT 9.31 K/uL (4.8-10.8)
[2017-10-30 00:18] LABS: ISTAT CREATININE 0.8 mg/dl (0.6-1.3); ISTAT IONIZED CALCIUM 1.2 mmol/l (1.12-1.32); ISTAT POTASSIUM 3.6 mEq/L (3.3-5.0)
[2017-10-30] MEDS ORDERED: KETOROLAC TROMETHAMINE 30 MG/ML VIAL IV STA (00:26)
[2017-10-30] MEDS ORDERED: DiphenhydrAMINE HCL 50 MG/ML VIAL IV STA (00:26)
[2017-10-30 00:29] LABS: BLOOD UREA NITROGEN 6 mg/dl (7-18); CALCIUM 9.6 mg/dl (8.5-10.1); CARBON DIOXIDE 27 mmol/L (21-32); CREATININE 0.97 mg/dl (0.60-1.20); GLUCOSE 92 mg/dl (70-99); POTASSIUM 3.5 mmol/L (3.5-5.1); SODIUM 137 mmol/L (136-145)
[2017-10-30 01:20] VITALS: BP 112/77; PULSE 66; O2SAT 100
--- NOTE | 2017-10-30 07:24 | DIAGNOSTIC IMAGING REPORT ---
CT ANGIOGRAPHY OF THE CHEST, PULMONARY EMBOLUS PROTOCOL CLINICAL HISTORY: Chest pain with shortness of breath. COMPARISON STUDY: Chest radiograph October 27, 2017. TECHNIQUE: Following IV administration of 87 mL of [id number]-[id number], helical axial images of the chest were obtained utilizing the pulmonary embolus protocol. Maximal intensity projections and sagittal and coronal reformats were viewed on an independent 3D workstation. IV contrast was administered without complication. A dose lowering technique was utilized adhering to the principles of ALARA. CT DOSE: 180.12 mGy.cm FINDINGS: No pulmonary emboli are identified. There is no evidence for thoracic aortic dissection. No pericardial effusion is identified. The size the heart is normal. No enlarged axillary, mediastinal or hilar lymph nodes are present. There is no pneumomediastinum. The central airways are patent. There is no consolidation to suggest pneumonia. No pneumothorax or pleural effusion is noted. No suspicious osseous lesions are present. Upper abdomen is unremarkable. IMPRESSION: 1. No pulmonary emboli identified. 2. No acute intrathoracic findings. Electronically signed by: Daniele Pichardo M.D. 10/30/2017 7:22 AM Dictated Date/Time: 10/30/2017 7:17 AM
== END 2017-10-30 01:21 | disposition home or self-care (01) ==
LOC: C.EDB 22:53 → C.EDA 10-30 01:21
DX: R06.02 Shortness of breath (principal); R07.89 Other chest pain; J45.909 Unspecified asthma, uncomplicated; F31.9 Bipolar disorder, unspecified

== ENCOUNTER 2017-10-31 21:52 | Emergency (ER) | payer OTHER ==
[~2017-10-31] VITALS: Ht 167.6 cm; Wt 60.9 kg
[~2017-10-31 21:52] MED LIST changes: -SRQ25 PO
[2017-10-31 22:20] VITALS: Ht 167.6 cm; Wt 60.9 kg
[2017-10-31] MEDS ORDERED: RANITIDINE HCL 50 MG/100 ML D5W IV STA (22:39)
[2017-10-31] MEDS ORDERED: DiphenhydrAMINE HCL 50 MG/ML VIAL IV STA (22:39)
[2017-10-31] MEDS ORDERED: DEXAMETHASONE INJ 6 MG in SYRINGE 0 ML IV STA (22:39)
[2017-10-31] MEDS ORDERED: RANITIDINE IV 50 MG in DEXTROSE 5% 100ML 100 ML IV STA (22:45)
--- NOTE | 2017-10-31 22:45 | EMERGENCY ROOM VISIT NOTE ---
History Report prepared by Ezra: Ramon Eli Under the Supervision of: Dr. Amrit Rader M.D. First contact with patient: 22:34 Chief Complaint: RESPIRATORY PROBLEMS Stated Complaint: CAN'T BREATHE Nursing Triage Summary: see triage note History of Present Illness The patient is a 21 year old female who presents to the Emergency Room with complaints of constant throat tightness for the past hour. She describes the tightness as "feeling like she is choking and that something is in her throat". She has associated symptoms of difficulty swallowing. She states she was not eating during the onset of the symptoms. She states the feeling "came out of nowhere". She states her symptoms are different than her previous ED visits this past week. She states she has taken Advil today but not Benadryl. Patient states that she has seasonal allergies. Patient denies any other known allergies. She states she finished a course of Prednisone today. I reviewed the patient's past visits. Patient was here on October 27 and . Patient's laboratory workup was unremarkable. Chest X-Ray and CT scan of chest were unremarkable. No PE noted. Source of History: patient Onset: 1 hour ago Position: throat Timing: constant Modifying Factors (Relieving): other (None) Note: Patient has difficulty swallowing. Review of Systems See HPI for pertinent positives & negatives. A total of 10 systems reviewed and were otherwise negative. Past Medical & Surgical Medical Problems: (1) Asthma (2) Bipolar II disorder with seasonal pattern (3) Cannabis use disorder, mild, abuse Surgical Problems: (1) History of appendectomy (2) Hx of tonsillectomy Family History No pertinent family history. Social History Smoking Status: Never Smoker Alcohol Use: none Drug Use: none Marital Status: single Housing Status: lives with roommate Occupation Status: [employer] student Current/Historical Medications Scheduled Bupropion HCl (Bupropion HCl Sr), 100 MG PO BID17 Etonogestrel (Nexplanon), INTRAD [id number] Lamotrigine (Lamictal), 150 MG PO HS Prednisone (Prednisone), 0 PO DAILY Ranitidine (Zantac), 150 MG PO BID Scheduled PRN Albuterol (Ventolin Hfa), 2 PUFFS INH QID PRN for Shortness of Breath Quetiapine Fumarate (Seroquel), 100 MG PO HS PRN for Anxiety Allergies Coded Allergies: No Known Allergies (Unverified , 10/31/17) Physical Exam Vital Signs Date Time Temp Pulse Resp B/P (MAP) Pulse Ox O2 Delivery O2 Flow Rate FiO2 11/01/17 00:56 71 17 108/60 97 10/31/17 23:58 36.9 58 18 101/59 100 Room Air 10/31/17 23:12 84 10/31/17 22:22 100 Room Air 10/31/17 22:20 36.9 79 18 130/88 100 Room Air Physical Exam GENERAL: Patient is in no acute distress. HEENT: No acute trauma, normocephalic atraumatic, mucous membranes moist, no nasal congestion, no scleral icterus, no uvular edema or posterior pharyngeal swelling. NECK: No stridor, no adenopathy, no meningismus, trachea is midline. LUNGS: Clear to auscultation bilaterally, no wheeze, no rhonchi, breath sounds equal. HEART: Without murmurs gallops or rubs, regular rate and rhythm. ABDOMEN: Soft, nontender, bowel sounds positive, no hernias, no peritonitis. EXTREMITIES: No cyanosis or edema, full range of motion of all the joints without pain or difficulty, no signs for acute trauma. NEUROLOGIC: Oriented x 3, no acute motor or sensory deficits, no focal weakness. SKIN: No rash, no jaundice, no diaphoresis. Medical Decision & Procedures ER Provider Diagnostic Interpretation: Radiology results as stated below were interpreted by me: Soft Tissue Neck X-Ray No soft tissue swelling, no epiglottitis, and a patent and open airway. Medications Administered Medications (Trade) Dose Ordered Sig/Fay Route Start Time Stop Time Status Last Admin Dose Admin Diphenhydramine HCl (Benadryl Inj) 50 mg NOW STAT IV 10/31/17 22:39 10/31/17 22:42 DC 10/31/17 23:01 50 MG Dexamethasone Sodium Phosphate 6 mg/Syringe 1.5 ml @ 1 mls/min NOW STAT IV 10/31/17 22:39 10/31/17 22:42 DC 10/31/17 22:39 1 MLS/MIN Ranitidine HCl 50 mg/Dextrose 102 ml @ 204 mls/hr NOW STAT IV 10/31/17 22:45 10/31/17 23:14 DC 10/31/17 23:02 204 MLS/HR ED Course 2236: The patient was evaluated in room B7. A complete history and physical exam was performed. 2238: Dexamethasone Sodium Phosphate 6mg/Syringe 1.5ml @ 1mls/min IV, Zantac IV 50mg IV, Benadryl Inj 50mg IV 0030: Reevaluated the patient. Discussed results and discharge instructions. She verbalized understanding and agreement. The patient is ready for discharge. Medical Decision Differential Diagnosis: Reflux, allergic reaction, uvular edema, stridor, esophageal narrowing, anxiety , and asthma exacerbation. The patient presents with a globus sensation in her throat. There is no stridor , no uvular edema. She has no wheezing. She is not hypoxic or toxic, she is not febrile. Review of her recent visits showed no evidence for PE, pneumonia or laboratory abnormality. Soft tissue neck film shows no epiglottitis or soft tissue swelling, her airway was widely patent. The patient received IV Benadryl, IV Zantac and IV Decadron. She feels markedly improved. The patient may be having an allergic reaction, this may be reflux. However, I do think she can be discharged. I will discharge her with a prednisone taper, Benadryl and Zantac. If worsening, she can return. Medication Reconcilliation Current Medication List: was personally reviewed by me Blood Pressure Screening Patient's blood pressure: Elevated blood pressure Blood pressure disposition: Elevated BP felt to be situational Impression Primary Impression: Globus sensation Scribe Attestation The scribe's documentation has been prepared under my direction and personally reviewed by me in its entirety. I confirm that the note above accurately reflects all work, treatment, procedures, and medical decision making performed by me. Departure Information Dispostion Home / Self-Care Prescriptions Prednisone (Prednisone) 20 Mg Tab 0 PO DAILY, #18 TAB 3 DAILY FOR 3 DAYS, THEN 2 DAILY FOR 3 DAYS, THEN 1 DAILY FOR 3 DAYS. Prov: Amrit Rader M.D. 11/01/17 Ranitidine (Zantac) 150 Mg Tab 150 MG PO BID for 30 Days, #60 TAB 3 Refills Prov: Amrit Rader M.D. 11/01/17 Referrals No Doctor, Assigned (PCP) Forms HOME CARE DOCUMENTATION FORM, IMPORTANT VISIT INFORMATION, WORK / SCHOOL INSTRUCTIONS Patient Instructions My [facility] Additional Instructions benadryl 1-2 tab 3x per day for 1 week zantac 2x per day prednisone as directed as a taper follow with S for a recheck this week return if worsening as discussed
[2017-10-31] MEDS: DEXAMETHASONE **PF** INJ 10 MG/ML VIAL ONE ×2 (22:59→23:02)
[2017-10-31 23:58] VITALS: TEMP 36.9
[2017-11-01] MEDS ORDERED: ZNTT/150 PO (00:35)
[2017-11-01] MEDS ORDERED: PRED20TA PO (00:35)
[2017-11-01 00:56] VITALS: BP 108/60; PULSE 71; O2SAT 97
--- NOTE | 2017-11-01 08:50 | DIAGNOSTIC IMAGING REPORT ---
SOFT TISSUE NECK CLINICAL HISTORY: throat closing sensation COMPARISON STUDY: No previous studies for comparison. FINDINGS: Epiglottis is normal. Prevertebral soft tissues are unremarkable. No radiopaque foreign bodies are identified. IMPRESSION: Unremarkable radiographs of the neck. Electronically signed by: Daniele Pichardo M.D. 11/01/2017 8:48 AM Dictated Date/Time: 11/01/2017 8:48 AM
== END 2017-11-01 01:05 | disposition home or self-care (01) ==
LOC: C.EDB 21:53
DX: R09.89 Other specified symptoms and signs involving the circulatory and respiratory systems (principal); J45.909 Unspecified asthma, uncomplicated; R03.0 Elevated blood-pressure reading, without diagnosis of hypertension; Z86.59 Personal history of other mental and behavioral disorders